=== PATIENT | male | born 1985 | race Caucasian/White ===

== ENCOUNTER 2021-09-23 08:08 | Outpatient (CLI) | payer OTHER | END 2021-09-23 08:09 | disposition home or self-care (01) | LOC: RAD-FRANK 08:08 | PROVIDERS: ATTEND Nurse Practitioner Family | DX: M25.562 Pain in left knee (principal); S39.012S Strain of muscle, fascia and tendon of lower back, sequela; M43.27 Fusion of spine, lumbosacral region; M51.37 Other intervertebral disc degeneration, lumbosacral region; M53.3 Sacrococcygeal disorders, not elsewhere classified | CPT/HCPCS: 72100 ==

== ENCOUNTER 2023-05-07 14:07 | Outpatient (CLI) | payer OTHER | END 2023-05-07 14:08 | disposition home or self-care (01) | LOC: BICRAD 14:07 | PROVIDERS: ATTEND Nurse Practitioner Family | DX: M25.562 Pain in left knee (principal); M25.862 Other specified joint disorders, left knee | CPT/HCPCS: 73565 ==